=== PATIENT | female | born 1980 | race Caucasian/White ===

== ENCOUNTER → 2016-06-09 | Outpatient (CLI) | payer BC ==
[2006-03-13 07:15] VITALS: TEMP 97.1
[~2016-06-09] MED LIST: AEROSPAN80 MCG/Act IH; ALVESCO160 MCG/Ac IH; B COMPLEX1 TA2 PO; CLARITIN 1010 MG/TAB PO; COLACE 100100 MG/CAP PO; DULERA1 ARO IH; PERCOCET 325 MG1 TA2 PO; PHENERGAN W/CO120 M1 PO; PRENATAL1 TA1 PO; PROAIR HFA0.09 MG/AC IH; PROTONIX 40MG T40 MG PO; SINGULAIR 110 MG/TAB PO; TESSALON P100 MG/CAP PO; ZERTEC; ZOLOFT 100MG100 MG PO; ZOLOFT 25MG25 MG PO; ZYRTEC 10MG10 MG PO; ZYRTEC5 MG
== END ==
LOC: COL.RAD 11:57
DX: H53.122 Transient visual loss, left eye (principal)
CPT/HCPCS: A9585

== ENCOUNTER 2016-12-06 16:19 | Day surgery (SDC) | payer BC ==
[~2016-12-06] VITALS: Ht 165.1 cm; Wt 77.3 kg
[~2016-12-06 16:19] MED LIST changes: -DULERA1 ARO IH; -ZOLOFT 100MG100 MG PO; -ZYRTEC 10MG10 MG PO
[2016-12-06 17:01] LABS: BASO # 0.1 (0.0-0.2); BASO % 0.4 % (0.0-2.0); EOS # 0.3 (0.0-0.7); EOS % 1.8 % (0-4.0); GRAN # 9.1 (1.4-6.5); HEMATOCRIT 39.3 % (37.0-47.0); HEMOGLOBIN 13.2 g/dl (12.5-16.0); LYMPH # 3.8 (1.2-3.4); LYMPH % 27.1 % (20.0-51.0); MEAN CELL VOLUME 93 fl (80.0-100.0); MEAN CORPUSCULAR HEMOGLOBIN 31 pg (27.0-31.0); MEAN CORPUSCULAR HGB CONC 34 g/dl (33.0-37.0); MEAN PLATELET VOLUME 9.2 fl (7.4-10.4); MONO # 0.8 (0.1-0.6); MONO % 5.4 % (1.7-9.3); PLATELET COUNT 295 K/mm3 (130-400); RED BLOOD COUNT 4.23 M/mm3 (4.10-5.30); REDCELL DISTRIBUTION WIDTH-CV 12.3 % (11.5-14.5); WHITE BLOOD COUNT 14.1 K/mm3 (4.8-10.8)
[2016-12-06 17:14] LABS: ADJUSTED CALCIUM 9.1 mg/dL (8.4-10.2); ALANINE AMINOTRANSFERASE 24 U/L (9-52); ALBUMIN 4.4 gm/dL (3.5-5.0); ALKALINE PHOSPHATASE 63 U/L (50-136); ANION GAP 12 mmol/L (7-16); BLOOD UREA NITROGEN 12 mg/dL (7-17); C-REACTIVE PROTEIN < 0.5 mg/dL (0.0-0.9); CALCIUM 9.4 mg/dL (8.4-10.2); CARBON DIOXIDE 24 mmol/L (22-30); CHLORIDE 106 mmol/L (98-107); CREATININE, serum 0.68 mg/dL (0.52-1.25); GLUCOSE 112 mg/dL (74-106); POTASSIUM 3.6 mmol/L (3.4-5.0); SODIUM 142 mmol/L (137-145); TOTAL PROTEIN 7.2 gm/dL (6.4-8.2)
[2016-12-06 17:26] LABS: PH 5 (5-8); SQUAMOUS EPITHELIAL 0-2 /hpf; URINE APPEARANCE Hazy; URINE BACTERIA Rare /hpf; URINE BILIRUBIN Negative (NEGATIVE); URINE BLOOD 2+ (NEGATIVE); URINE COLOR Yellow; URINE GLUCOSE Negative (NEGATIVE); URINE KETONE Trace (NEGATIVE)
[2016-12-06 17:27] LABS: URINE WBC >50 /hpf
[2016-12-06] MEDS ORDERED: DULERA1 ARO IH (20:51)
[2016-12-06] MEDS ORDERED: ZYRTEC 10MG10 MG PO (20:52)
[2016-12-06] MEDS ORDERED: ZOLOFT 100MG100 MG PO (20:52)
[2016-12-06] MEDS ORDERED: SINGULAIR 110 MG/TAB PO (20:53)
[2016-12-06 23:15] VITALS: BP 99/53; PULSE 67; TEMP 97.9
[2016-12-06 23:30] VITALS: BP 95/51; PULSE 81; TEMP 98.2
[2016-12-06 23:45] VITALS: BP 87/40; PULSE 83
[2016-12-07] VITALS (10 sets, daily range): BP systolic 74–101; BP diastolic 33–59; PULSE 63–92; TEMP 98.2–99
[2016-12-07] MEDS ORDERED: PERCOCET 325 MG1 TA2 PO (14:34)
== END 2016-12-07 15:00 | disposition home or self-care (01) ==
LOC: COL.ER 16:19 → SURG 20:39 → SDCO 20:39
PROVIDERS: Emergency Medicine
DX: K35.80 Unspecified acute appendicitis (principal); J45.909 Unspecified asthma, uncomplicated; R30.0 Dysuria
CPT/HCPCS: OP; J0690; J0696; J1100; J1170; J2405; J2704; J2710; J3010; J7030; J7120; Q9967

== ENCOUNTER → 2018-05-12 | Outpatient (CLI) | payer BC ==
[~2018-05-12] MED LIST changes: +DULERA1 ARO IH; +ZOLOFT 100MG100 MG PO; +ZYRTEC 10MG10 MG PO
== END ==
LOC: MC.RAD 08:21
DX: N64.59 Other signs and symptoms in breast (principal)
CPT/HCPCS: G0279

== ENCOUNTER 2019-04-23 17:54 | Emergency (ER) | payer BC ==
[~2019-04-23] VITALS: Ht 165.1 cm; Wt 88.6 kg
[2019-04-23 18:00] VITALS: BP 125/58; TEMP 98.3
[2019-04-23] MEDS ORDERED: LYRICA 25MG CAP25 MG PO (18:22)
[2019-04-23] MEDS ORDERED: CYMBALTA 30MG30 MG PO (18:24)
[2019-04-23] MEDS ORDERED: ADDERALL30 MG PO (18:24)
[2019-04-23] MEDS ORDERED: REQUIP2 MG PO (18:25)
[2019-04-23] MEDS ORDERED: MULTI VITAMINS1 TAB PO (18:25)
[2019-04-23 19:24] LABS: BASO # 0.1 (0.0-0.2); BASO % 0.5 % (0.0-2.0); EOS # 0.1 (0.0-0.7); EOS % 0.9 % (0-4.0); GRAN # 5.4 (1.4-6.5); GRAN % 53.9 % (42.2-75.2); HEMATOCRIT 42.2 % (37.0-47.0); LYMPH # 3.8 (1.2-3.4); LYMPH % 37.9 % (20.0-51.0); MEAN CELL VOLUME 93 fl (80.0-100.0); MEAN CORPUSCULAR HEMOGLOBIN 31 pg (27.0-31.0); MEAN CORPUSCULAR HGB CONC 33 g/dl (33.0-37.0); MEAN PLATELET VOLUME 10.1 fl (7.4-10.4); MONO # 0.7 (0.1-0.6); MONO % 6.5 % (1.7-9.3); PLATELET COUNT 319 K/mm3 (130-400); RED BLOOD COUNT 4.52 M/mm3 (4.10-5.30); REDCELL DISTRIBUTION WIDTH-CV 12.5 % (11.5-14.5)
[2019-04-23 19:35] LABS: ALANINE AMINOTRANSFERASE 27 U/L (9-52); ALBUMIN 4.4 gm/dL (3.5-5.0); ALKALINE PHOSPHATASE 68 U/L (50-136); ANION GAP 9 mmol/L (7-16); AST,SGOT 27 U/L (15-37); BILIRUBIN,TOTAL 0.7 mg/dL (0.0-1.0); BLOOD UREA NITROGEN 11 mg/dL (7-17); CALCIUM 9.2 mg/dL (8.4-10.2); CARBON DIOXIDE 24 mmol/L (22-30); CHLORIDE 108 mmol/L (98-107); CREATINE KINASE 110 U/L (30-135); CREATININE, serum 0.67 (0.52-1.25); GLUCOSE 90 mg/dL (74-106); MAGNESIUM 2.1 mg/dL (1.6-2.3); POTASSIUM 3.9 mmol/L (3.4-5.0); SODIUM 141 mmol/L (137-145); TOTAL PROTEIN 7.4 gm/dL (6.4-8.2)
[2019-04-23 19:47] LABS: C-REACTIVE PROTEIN < 0.5 mg/dL (0.0-0.9); TROPONIN-I < 0.012 ng/mL (0.000-0.035)
[2019-04-23 21:35] VITALS: PULSE 89
== END 2019-04-23 21:35 | disposition home or self-care (01) ==
LOC: COL.ER 17:54
PROVIDERS: Emergency Medicine
DX: R00.2 Palpitations (principal); R19.7 Diarrhea, unspecified; J45.909 Unspecified asthma, uncomplicated; M79.7 Fibromyalgia; F98.8 Other specified behavioral and emotional disorders with onset usually occurring in childhood and adolescence
CPT/HCPCS: J7030

== ENCOUNTER → 2019-12-11 | Outpatient (CLI) | payer BC ==
[~2019-12-11] MED LIST changes: +ADDERALL30 MG PO; +CYMBALTA 30MG30 MG PO; +LYRICA 25MG CAP25 MG PO; +MULTI VITAMINS1 TAB PO; +REQUIP2 MG PO
== END ==
LOC: MC.RAD 08:13
DX: Z12.31 Encounter for screening mammogram for malignant neoplasm of breast (principal)

== ENCOUNTER → 2021-01-29 | Outpatient (CLI) | payer BC | LOC: MC.RAD 08:00 | DX: Z12.31 Encounter for screening mammogram for malignant neoplasm of breast (principal); N64.89 Other specified disorders of breast ==

== ENCOUNTER → 2021-02-05 | Outpatient (CLI) | payer BC | LOC: MC.RAD 13:00 | DX: N64.89 Other specified disorders of breast (principal) ==

== ENCOUNTER → 2024-01-26 | Outpatient (CLI) | payer OTHER | LOC: COL.RAD 11:38 | DX: R10.11 Right upper quadrant pain (principal) ==